=== PATIENT | male | born 1990 | race Caucasian/White ===

== ENCOUNTER 2020-04-17 00:48 | Emergency (ER) | payer OTHER ==
[~2020-04-17] VITALS: Ht 170.2 cm; Wt 86.2 kg
[2020-04-17 00:52] VITALS: Ht 170.2 cm; Wt 86.2 kg
[2020-04-17 01:26] VITALS: BP 115/79
== END 2020-04-17 01:26 | disposition other institution (70) ==
LOC: ED 00:48
DX: Z02.89 Encounter for other administrative examinations (principal)